=== PATIENT | male | born 1970 | race Caucasian/White ===

== ENCOUNTER → 2019-04-12 | Emergency (ER) | payer OTHER ==
[~2019-04-12] VITALS: Ht 172.7 cm; Wt 81.6 kg
[~2019-04-12] MED LIST: KETO10TA2 PO
== END | disposition home or self-care (01) ==
LOC: ER 22:34
DX: S80.212A Abrasion, left knee, initial encounter (principal); S10.81XA Abrasion of other specified part of neck, initial encounter; S20.212A Contusion of left front wall of thorax, initial encounter; R07.89 Other chest pain; Y08.89XA Assault by other specified means, initial encounter; Y93.89 Activity, other specified; Y92.89 Other specified places as the place of occurrence of the external cause; Y99.8 Other external cause status

== ENCOUNTER 2022-12-29 10:40 | Emergency (ER) | payer OTHER ==
[~2022-12-29] VITALS: Ht 172.7 cm; Wt 86.2 kg
[2022-12-29] MEDS ORDERED: COZAAR25 MG PO (10:44)
[2022-12-29] MEDS ORDERED: DOLOGESIC-DF 51 EACH PO (17:28)
== END 2022-12-29 17:58 | disposition home or self-care (01) ==
LOC: ER 10:40
PROVIDERS: General Practice
DX: S00.83XA Contusion of other part of head, initial encounter (principal); S40.012A Contusion of left shoulder, initial encounter; S60.212A Contusion of left wrist, initial encounter; Y08.89XA Assault by other specified means, initial encounter; Y93.9 Activity, unspecified; Y92.018 Other place in single-family (private) house as the place of occurrence of the external cause; Y99.9 Unspecified external cause status; E11.9 Type 2 diabetes mellitus without complications; I10 Essential (primary) hypertension

== ENCOUNTER 2023-01-02 10:12 | Emergency (ER) | payer OTHER ==
[~2023-01-02] VITALS: Ht 172.7 cm; Wt 86.2 kg
[~2023-01-02 10:12] MED LIST changes: +COZAAR25 MG PO; +DOLOGESIC-DF 51 EACH PO
[2023-01-02] MEDS ORDERED: COZAAR50 MG PO (10:37)
[2023-01-02] MEDS ORDERED: LANTUS SOL100 UNIT/1 (10:37)
== END 2023-01-02 16:19 | disposition home or self-care (01) ==
LOC: ER 10:12
DX: S06.0X0A Concussion without loss of consciousness, initial encounter (principal); X58.XXXA Exposure to other specified factors, initial encounter; Y93.9 Activity, unspecified; Y92.9 Unspecified place or not applicable; Y99.9 Unspecified external cause status; I10 Essential (primary) hypertension
CPT/HCPCS: 70450; 72125; 96372; 99284; J1885; J3490

== ENCOUNTER 2024-10-26 03:30 | Emergency (ER) | payer OTHER ==
[~2024-10-26] VITALS: Ht 172.7 cm; Wt 89.4 kg
[~2024-10-26 03:30] MED LIST changes: +COZAAR50 MG PO; +LANTUS SOL100 UNIT/1
[2024-10-26] MEDS ORDERED: ORPHENADRINE CITRATE 30 MG/ML AMPUL IM STA (05:46)
[2024-10-26] MEDS ORDERED: KETOROLAC TROMETHAMINE 60 MG VIAL IM STA (05:46)
== END 2024-10-26 06:08 | disposition home or self-care (01) ==
LOC: ER 03:30
DX: G89.11 Acute pain due to trauma (principal); R51.9 Headache, unspecified; T14.8XXA Other injury of unspecified body region, initial encounter; I10 Essential (primary) hypertension; E11.9 Type 2 diabetes mellitus without complications; Z79.4 Long term (current) use of insulin